=== PATIENT | male | born 1960 | race Caucasian/White ===

== ENCOUNTER 2019-08-20 15:37 | Outpatient (CLI) | payer OTHER ==
[2019-08-20] MEDS ORDERED: GADOBUTROL 10 MMOL/10 ML VIAL ONE (15:57)
[2019-08-20] MEDS ORDERED: GADOBUTROL 10 MMOL/10 ML VIAL IVP ONE (17:44)
--- NOTE | 2019-08-21 14:31 | MRI Report ---
Reason: FISTULA OF BILE DUCT Procedure Date: 08/20/2019 Accession Number: [id number] / [id number] Procedure: MRI - Abdomen W/WO CPT Code: Final Report FULL RESULT: EXAM: MR ABDOMEN WITH AND WITHOUT CONTRAST (MR PANCREAS AND MRCP) EXAM DATE: 08/20/2019 05:43 PM. CLINICAL HISTORY: FISTULA OF BILE DUCT. Intermittent abdominal pain for the past few months, usually triggered by eating. COMPARISON: None. TECHNIQUE: Multiplanar breath-hold T1, T2, and DWI sequences obtained through the pancreas and abdomen on an MR scanner. Dedicated 2D and 3D MRCP sequences obtained through the biliary and pancreatic ducts. Images obtained before and after administration of 10 cc GADAVIST intravenous contrast. Multiphase postcontrast sequences obtained through the pancreas. FINDINGS: Lung Bases: Unremarkable. Liver: The liver has normal size, morphology and signal. No evidence of mass. 1.1 cm simple cyst in segment 6. Gallbladder: There are several small nondependent gallstones measuring up to 5 mm in size. No abnormal gallbladder dilation, wall thickening, or pericholecystic edema. Bile Ducts: No intrahepatic or extrahepatic duct dilatation. The common bile duct measures up to 6 mm. No choledocholithiasis. Pancreas: The pancreas appears normal with no mass. The pancreatic duct measures 1 mm in diameter and appears normal with no stone or stricture. No peripancreatic edema. Spleen: The spleen appears normal. Kidneys: The kidneys appear normal with no mass or hydronephrosis. There are a few tiny simple cysts in both kidneys. No imaging follow-up is recommended per consensus recommendations based on imaging criteria. Adrenals: The adrenals appear normal. Bowel: The visualized segments of the small bowel and colon appear normal with no inflammation or obstruction. Peritoneum: No ascites. Retroperitoneum: The retroperitoneal structures appear normal with no mass or lymphadenopathy. Other: Body wall and bones are unremarkable. IMPRESSION: 1. Cholelithiasis. No evidence of acute cholecystitis. 2. No biliary ductal dilatation or choledocholithiasis. RADIA
== END 2019-08-20 15:38 | disposition home or self-care (01) ==
LOC: DI 15:37
PROVIDERS: ATTEND Internal Medicine Gastroenterology
DX: K80.20 Calculus of gallbladder without cholecystitis without obstruction (principal)
CPT/HCPCS: 74183; A9585

== ENCOUNTER 2019-08-29 10:55 | Outpatient (CLI) | payer OTHER ==
[2019-08-29 11:20] LABS: ALBUMIN 4.3 g/dL (3.2-5.5); ALBUMIN/GLOBULIN RATIO 1.5 (1.0-2.2); BILIRUBIN,TOTAL 1.2 mg/dL (0.2-1.0); CALCIUM 9.5 mg/dL (8.5-10.3); TOTAL PROTEIN 7.2 g/dL (6.7-8.2)
== END 2019-08-29 10:56 | disposition home or self-care (01) ==
LOC: LAB 10:55
PROVIDERS: ATTEND Surgery
DX: K83.8 Other specified diseases of biliary tract (principal)
CPT/HCPCS: 36415; 80053

== ENCOUNTER 2019-09-26 15:31 | Outpatient (CLI) | payer OTHER | END 2019-09-26 15:32 | disposition home or self-care (01) | LOC: LAB 15:31 | PROVIDERS: ATTEND Surgery | DX: K81.1 Chronic cholecystitis (principal) | CPT/HCPCS: 81599 ==

== ENCOUNTER 2020-03-13 03:29 | Emergency (ER) | payer OTHER ==
[2020-03-13] MEDS ORDERED: KETOROLAC 30 MG/ML VIAL IVP STA (03:51)
[2020-03-13] MEDS ORDERED: SODIUM CHLORIDE 0.9% 1,000 ML IV STA (03:51)
--- NOTE | 2020-03-13 03:53 | ED Physician Documentation ---
PD HPI ABD PAIN - Stated complaint Stated Complaint: ABD PX - Chief complaint Chief Complaint: Abd Pain - History obtained from History obtained from: Patient, Family - History of Present Illness Timing - onset: How many weeks ago (2) Timing - duration: Weeks (2) Timing - details: Gradual onset, Still present Quality: Sharp, Pain Location: Epigastric Worsened by: Eating Associated symptoms: Diarrhea (once). No: Fever, Vomiting, Dysuria, Chest pain, Dizzy Similar symptoms before: Diagnosis (Cholecystitis and choledocholithiasis) Recently seen: Clinic - Additional information Additional information: 59-year-old male who had his gallbladder out in September of this year after having a common duct stone in July has developed epigastric pain over the past 2 weeks that is been worse after eating and this morning the pain the suddenly much more severe and the patient has come to the emergency department for evaluation. He states this feels very similar to when he had his gallbladder attacks. Review of Systems Constitutional: denies: Fever Eyes: denies: Decreased vision Ears: denies: Ear pain Nose: denies: Congestion Throat: denies: Sore throat Cardiac: denies: Chest pain / pressure Respiratory: denies: Dyspnea, Cough GI: reports: Abdominal Pain, Nausea, Diarrhea (once). denies: Vomiting : denies: Dysuria, Frequency Musculoskeletal: denies: Neck pain, Back pain, Extremity pain Neurologic: denies: Generalized weakness, Focal weakness, Numbness PD PAST MEDICAL HISTORY - Past Medical History Past Medical History: Yes Respiratory: Sleep apnea, CPAP use Endocrine/Autoimmune: None, Other GI: GERD, Cholelithiasis : None HEENT: Other Psych: None Musculoskeletal: None, Other Derm: None Other Past Medical History: allergies - Past Surgical History Past Surgical History: Yes General: Cholecystectomy, Colonoscopy - Present Medications Home Medications: Ambulatory Orders Medication Instructions Recorded Confirmed Loratadine [Claritin] 10 mg PO DAILY 09/30/19 09/30/19 - Allergies Allergies/Adverse Reactions: Allergies Allergy/AdvReac Type Severity Reaction Status Date / Time No Known Drug Allergies Allergy Verified 03/13/20 03:36 - Social History Does the pt smoke?: No Smoking Status: Never smoker Does the pt drink ETOH?: Yes Does the pt have substance abuse?: No - Immunizations Immunizations are current?: Yes - POLST Patient has POLST: No PD ED PE NORMAL - Vitals Vital signs reviewed: Yes (hypertensive ) - General General: Alert and oriented X 3, No acute distress, Well developed/nourished - HEENT HEENT: Atraumatic, PERRL, EOMI, Other (scleral icterus is present) - Neck Neck: Supple, no meningeal sign, No bony TTP - Cardiac Cardiac: RRR, No murmur - Respiratory Respiratory: No respiratory distress, Clear bilaterally - Abdomen Abdomen: Normal bowel sounds, Soft, Non distended, No organomegaly, Other (epigastric tenderness without garding or rebound. ) - Back Back: No CVA TTP, No spinal TTP - Derm Derm: Normal color, Warm and dry, No rash - Extremities Extremities: No deformity, No edema - Neuro Neuro: Alert and oriented X 3, technical systems architect 2-12 intact, No motor deficit, No sensory deficit, Normal speech Eye Opening: Spontaneous Motor: Obeys Commands Verbal: Oriented GCS Score: 15 - Psych Psych: Normal mood, Normal affect Results - Vitals Vitals: Vital Signs - 24 hr 03/13/20 03/13/20 03/13/20 03:33 03:40 05:35 Temperature 36.8 C 36.8 C 36.8 C Heart Rate 80 80 74 Respiratory 20 20 20 Rate Blood Pressure 174/92 H 174/92 H 143/78 H O2 Saturation 99 99 99 Oxygen O2 Source Room air - Labs Labs: Laboratory Tests 03/13/20 03/13/20 03/13/20 04:16 04:16 04:47 WBC 7.9 RBC 5.16 Hgb 15.7 Hct 46.3 MCV 89.7 MCH 30.4 MCHC 33.9 RDW 13.9 Plt Count 235 MPV 9.0 Neut # (Auto) 6.7 H Lymph # (Auto) 0.6 L Coles # (Auto) 0.5 Eos # (Auto) 0.0 Baso # (Auto) 0.0 Absolute Nucleated RBC 0.00 Nucleated RBC % 0.0 Sodium 136 Potassium 3.8 Chloride 102 Carbon Dioxide 21 Anion Gap 13.0 BUN 14 Creatinine 0.7 Estimated GFR (MDRD) 116 Glucose 152 H Calcium 9.0 Total Bilirubin 8.4 H AST 261 H ALT 535 H Alkaline Phosphatase 361 H Total Protein 7.2 Albumin 4.0 Globulin 3.2 Albumin/Globulin Ratio 1.3 Lipase 3150 H Urine Color DK. ORANGE Urine Clarity CLEAR Urine pH 5.5 Ur Specific [place] 1.025 Urine Protein NEGATIVE Urine Glucose (UA) NEGATIVE Urine Ketones TRACE Urine Occult Blood NEGATIVE Urine Nitrite NEGATIVE Urine Bilirubin LARGE H Urine Urobilinogen >=8.0 H Ur Leukocyte Esterase NEGATIVE Ur Microscopic Review NOT INDICATED Urine Culture Comments NOT INDICATED PD MEDICAL DECISION MAKING - ED course Complexity details: reviewed results, re-evaluated patient, considered differential, d/w patient, d/w family ED course: 59-year-old male with a prior history of cholecystitis has had his gallbladder out he has had a presumed choledocholithiasis prior to that with elevation of his LFTs and bilirubin which then returned to normal and following that he had a normal MRCP. This evening he presents to the emergency department with 2 weeks of pain and he appears to have scleral icterus.His biochemical profile is consistent with a common duct stone and pancreatitis. His biochemical profile is shared the Dr. Cortes BRIZUELA at [facility] and he recommends imaging first to identify specifically the underlying leasion transfer for care as appropriate. MRCP is not available until 6pm today and an ultrasound is ordered and care of the patient is turned over to Dr. Jane at shift change. The patient is comfortable and not vomiting in the position. He has received a liter of saline and 30mg of Toradal. Departure - Departure Clinical Impression: Biliary obstruction Pancreatitis Qualifiers: Chronicity: acute Pancreatitis type: biliary Acute pancreatitis complication: unspecified Qualified Code(s): K85.10 - Biliary acute pancreatitis without necrosis or infection
[2020-03-13 04:26] LABS: BASOPHILS % (AUTO) 0.3 %; EOSINOPHILS % (AUTO) 0.4 %; HGB - HEMOGLOBIN 15.7 g/dL (14.0-18.0); LYMPHOCYTES # (AUTO) 0.6 10^3/uL (1.5-3.5); LYMPHOCYTES % (AUTO) 7.6 %; MEAN CORPUSCULAR HEMOGLOBIN 30.4 pg (27.0-31.0); MEAN CORPUSCULAR HGB CONC 33.9 g/dL (32.0-36.0); MEAN CORPUSCULAR VOLUME 89.7 fL (80.0-94.0); MONOCYTES # (AUTO) 0.5 10^3/uL (0.0-1.0); MONOCYTES % (AUTO) 6.1 %; NEUTROPHILS # (AUTO) 6.7 10^3/uL (1.5-6.6); NEUTROPHILS % (AUTO) 85.2 %; PLT - PLATELET COUNT 235 10^3/uL (130-450); RED BLOOD COUNT 5.16 10^6/uL (4.70-6.10); RED CELL DISTRIBUTION WIDTH 13.9 % (12.0-15.0); WHITE BLOOD COUNT 7.9 x10^3/uL (4.8-10.8)
[2020-03-13 04:41] LABS: ALBUMIN/GLOBULIN RATIO 1.3 (1.0-2.2); BILIRUBIN,TOTAL 8.4 mg/dL (0.2-1.0); CREATININE 0.7 mg/dL (0.6-1.2); TOTAL PROTEIN 7.2 g/dL (6.7-8.2)
[2020-03-13 04:52] LABS: GLUCOSE, URINE (UA) NEGATIVE (NEGATIVE); KETONES,URINE (UA) TRACE mg/dL (NEGATIVE); LEUKOCYTE ESTERASE, URINE NEGATIVE (NEGATIVE); NITRITE,URINE NEGATIVE (NEGATIVE); OCCULT BLOOD,URINE NEGATIVE (NEGATIVE); PH,URINE 5.5 PH (5.0-7.5); PROTEIN,URINE NEGATIVE (NEGATIVE); UROBILINOGEN,URINE >=8.0 E.U./dL (NORMAL)
[2020-03-13 04:53] LABS: BILIRUBIN,URINE LARGE (NEGATIVE); CLARITY,URINE CLEAR (CLEAR); ICTOTEST,URINE POSITIVE
[2020-03-13] MEDS ORDERED: LACTATED RINGERS 1,000 ML IV STA ×3 (08:47→14:26)
[2020-03-13] MEDS ORDERED: HYDROmorphone 2 MG/ML VIAL IVP STA (08:47)
--- NOTE | 2020-03-13 09:08 | Ultrasound Report ---
PROCEDURE: Abdomen Limited INDICATIONS: s/p CCY, ? ductal blockage TECHNIQUE: Real-time focused scanning was performed of the abdomen, with image documentation. COMPARISON: MRI dated 08.20.19 FINDINGS: Evaluation is limited by body habitus. Liver demonstrates a coarse echotexture, and is otherwise within normal limits. Gallbladder surgical ly absent. There is mild intrahepatic and extrahepatic biliary ductal dilatation. Common hepatic duct measures 9 mm. Common bile duct measures 10 mm. Right kidney measures 10.8 cm with a normal renal co rtical thickness of 1.8 cm. 6 mm right interpolar renal cyst. IVC is patent. IMPRESSION: 1. Mild biliary ductal dilatation, which may be within normal limits given patient's age and cholecys tectomy status. If there is clinical evidence for biliary ductal obstruction, MRCP may be helpful for further assessment. Reviewed by: Vishnu Lamb MD on 03/13/2020 9:07 AM [facility] Approved by: Vishnu Lamb MD on 03/13/2020 9:07 AM PST Station ID: [id number]
--- NOTE | 2020-03-13 09:09 | ED Physician Documentation ---
ED Addendum - Addendum Addendum: 03/13/20 09:07The patient was having still moderate pain after Toradol earlier. We will give some more IV fluids as well as pain medicine. He just completed the ultrasound and the preliminary from the tech in the worksheet shows a dilated common bile duct of 10 mm. They are unable to visualize the length of it so could not include or exclude stones. MRCP is not available until 6 PM tonight assuming no problems in the schedule through the day. At this point I think the patient will likely need admitting anyway and I will contact back the [facility] and see if they want transfer head and try to obtain further imaging there.
[2020-03-13] MEDS ORDERED: GADOBUTROL 10 MMOL/10 ML VIAL ONE (10:03)
[2020-03-13] MEDS ORDERED: GADOBUTROL 10 MMOL/10 ML VIAL IVP ONE (10:52)
--- NOTE | 2020-03-13 11:18 | MRI Report ---
PROCEDURE: MRCP W/WO INDICATIONS: pancreatitis with obstruction CONTRAST: IV CONTRAST: Gadavist ml: 10 TECHNIQUE: Coronal ultra fast SE through the abdomen, axial 2-D spoiled GE in- and [id number], and breath-hold T2 FSE with fat saturation through the biliary system and pancreas. Oblique coronal and axial thin- slice ultra fast SE, radial thick-slab ultra fast SE centered on the extrahepatic bile ducts. IV con trast enhanced axial T1 fat saturated sequences of the abdomen. COMPARISON: Ultrasound examination dated 03.13. FINDINGS: Image quality: Excellent. Pancreas and biliary system: There is moderate intrahepatic and extrahepatic biliary ductal dilatatio n. Common hepatic duct measures 11 mm diameter. Common bile duct demonstrates a maximal short axis di ameter of 13 mm. There is a 3 mm diameter hypointense focus within the distal common bile duct Pancre as is normal in morphology. There is moderate T2 signal elevation surrounding the pancreatic head, ne ck, body and tail. Pancreatic duct is normal in caliber, without developmental anomalies. Gallbladde r is surgically absent. Other solid organs: Liver and spleen are normal in size. No adrenal nodules. Both kidneys are norm al in size, without hydronephrosis. Nodes and vessels: No retroperitoneal or mesenteric adenopathy by size criteria. Aorta and inferior vena cava are normal in size. Bowel and peritoneum: Unenhanced bowel loops are normal in caliber. There is a small amount of fluid within the left anterior pararenal space and surrounding the pancreatic body and tail. Lung bases: No basal pleural effusions. Heart size is normal. Bones and soft tissues: No ventral hernias. Bone marrow is of normal overall signal. IMPRESSION: 1. Distal common bile duct calculus measuring 3 mm associated with moderate intrahepatic and extrahep atic biliary ductal dilatation. 2. Pancreatitis. Reviewed by: Vishnu Lamb MD on 03/13/2020 11:17 AM [facility] Approved by: Vishnu Lamb MD on 03/13/2020 11:17 AM [facility] Station ID: [id number]
[2020-03-13] MEDS ORDERED: AMPICILLIN/SULBACTAM 1.5 GM in SODIUM CHLORIDE 0.9% MINIBAG 100 ML IV STA (11:41)
[2020-03-13 15:43] LABS: C. PNEUMONIAE- RESP PCR PANEL NOT DETECTED
[2020-03-13 17:07] VITALS: BP 126/76
== END 2020-03-13 17:21 | disposition short-term general hospital (02) ==
LOC: ED 03:29
DX: K80.50 Calculus of bile duct without cholangitis or cholecystitis without obstruction (principal); K85.10 Biliary acute pancreatitis without necrosis or infection; R74.8 Abnormal levels of other serum enzymes; Z90.49 Acquired absence of other specified parts of digestive tract; Z20.828 Contact with and (suspected) exposure to other viral communicable diseases
CPT/HCPCS: 0202U; 36415; 74183; 76705; 80053; 81003; 83690; 85025; 96361; 96374; 96375; 99284; 99285; A9585; J1170; J7120; 81001; 87086

== ENCOUNTER 2023-12-14 09:08 | Outpatient (CLI) | payer OTHER ==
--- NOTE | 2023-12-15 11:44 | MRI Report ---
PROCEDURE: Lumbar Spine WO INDICATIONS: LOW BACK PAIN TECHNIQUE: Noncontrast sagittal T1 spin echo and T2 fast echo, sagittal STIR, axial T1 and T2 fast spin echo thr ough the lumbar spine. In cases with scoliosis, additional coronal T2 fast spin echo may be performe d. COMPARISON: None. FINDINGS: Image quality: Diagnostic, with note made of motion artifact. Alignment and Curvature: There is mild grade 1 anterolisthesis seen at L5-S1. No associated pars def ects are seen. Bone Marrow: Marrow is of normal overall signal. No acute vertebral body compression fractures. Spinal Cord: Conus medullaris terminates at the L1 level. Visualized cord demonstrates normal signa l and size. Paraspinous Soft Tissues: No paravertebral masses. This patient has transitional anatomy. For the purposes of this examination, the level with the last well-developed disc space considered to be L5-S1. By the summary scheme, there is a transitional disc at S1-S2. There are likely vestigial ribs present at L1. T12-L1: Mild loss of disc height and disc signal are seen. Mild disc bulge is seen. Mild facet hyp ertrophy is seen. Moderate bilateral neural foraminal narrowing is seen. No central canal narrowing is seen. L1-L2: No significant abnormality is seen. L2-L3: The disc height is well-preserved. There is loss of disc signal seen. Mild to moderate disc bulge is seen, with a mild central disc protrusion. Mild to moderate facet hypertrophy is seen. Asso ciated hypertrophy of the ligamentum flavum can be seen. There is moderate bilateral neuroforaminal n arrowing seen, left worse than right. Moderate central canal narrowing is seen. L3-L4: The disc height is well-preserved. There is loss of disc signal seen. Moderate disc bulge i s seen at this level. A superimposed central disc protrusion is seen. Moderate facet hypertrophy is seen. There is at least moderate bilateral neuroforaminal narrowing seen. Moderate to severe centr al canal narrowing is seen, as on series 6 image 28. L4-L5: The disc height is well-preserved. There is loss of disc signal seen. Moderate disc bulge i s seen at this level. A superimposed central disc protrusion is seen. Moderate facet hypertrophy i s seen. Associated hypertrophy of the ligamentum flavum can be seen. There is at least moderate bilat eral neuroforaminal narrowing seen. At least moderate central canal narrowing is seen. L5-S1: Mild loss of disc height and disc signal are seen. Moderate disc bulge is seen at this leve l. A superimposed central disc protrusion is seen. Prominent facet hypertrophy can be seen. There is at least moderate bilateral neuroforaminal narrowing seen, right worse than left. There is a mild deg ree of compression seen upon the exiting right L5 nerve root. Moderate to severe central canal narrow ing is seen, as on series 6 image 40. IMPRESSION: Multiple levels of lumbar spine degenerative change can be seen, which are worst at the L5-S1 level. Reviewed by: Scott Moore MD on 12/15/2023 10:42 AM [facility] Approved by: Scott Moore MD on 12/15/2023 10:42 AM [facility] Station ID: [id number]
--- NOTE | 2023-12-17 13:33 | MRI Report ---
PROCEDURE: Knee RT WO INDICATIONS: R KNEE PAIN, LOW BACK PAIN TECHNIQUE: Noncontrast sagittal PD fast spin echo and T2 fast spin echo with fat saturation, sagittal 3-D spoile d GE with fat saturation; coronal T1 spin echo and PD fast spin echo with fat saturation, and axial P D fast spin echo with fat saturation through the knee. COMPARISON: None. FINDINGS: Image quality: Excellent. Anterior cruciate ligament: Intact. Posterior cruciate ligament: Intact. Medial collateral ligament: Intact. Lateral collateral ligament: Intact. Medial meniscus: Mild intrasubstance degeneration is seen without a discrete tear. Lateral meniscus: Mild intrasubstance degeneration. No discrete ligament tearing. Medial and lateral tendons: The semimembranosus tendon insertions appear intact. Visualized portion s of the pes anserinus tendons appear normal. The popliteus tendon appears intact. Iliotibial band appears normal. Anterior structures: Mild patellar tendinosis. The distal quadriceps tendon is intact. No patellar s ubluxation. No femoral trochlear dysplasia or ventral trochlear prominence. No edema in the infrapa tellar fat pad. Bones: No acute trabecular bone injury or fracture. Medial femorotibial cartilage: High-grade partial thickness cartilage irregularity in the weightbear ing portion of the medial femorotibial compartment with small marginal osteophytes. Lateral femorotibial cartilage: Focal high-grade cartilage loss at the posterior portion of the late ral femoral condyle superimposed on background mild chondromalacia with small marginal osteophytes. Patellofemoral cartilage: Large area of full-thickness cartilage loss involving the lateral patellar facet and lateral femoral trochlea with subchondral cystic changes and edema as well as remodeling o f the articular surfaces. Small marginal osteophytes are present. Soft tissues: There is a small joint effusion. There is a trace medial popliteal cyst. The musculat ure surrounding the knee is normal in bulk. Nonspecific prepatellar subcutaneous soft tissue edema. N o focal bursal fluid collection. IMPRESSION: 1.Tricompartmental osteoarthrosis with large area of full-thickness cartilage loss in the patellofemo ral compartment with subchondral cystic changes and remodeling of the articular surfaces. Areas of gr xi III chondromalacia are seen in the medial and lateral femorotibial compartments. 2.Mild intrasubstance degeneration in the medial and lateral menisci without a discrete tear. 3.Mild patellar tendinosis. 4.No acute trabecular bone injury. Cruciate and collateral ligaments are intact. 5.Small joint effusion. Nonspecific prepatellar subcutaneous soft tissue edema. Reviewed by: Brian Curry MD on 12/17/2023 1:31 PM PDT Approved by: Brian Curry MD on 12/17/2023 1:31 PM PDT Station ID: [id number]
== END 2023-12-14 09:09 | disposition home or self-care (01) ==
LOC: DI 09:08
PROVIDERS: ATTEND Nurse Practitioner Family
DX: M51.36 Other intervertebral disc degeneration, lumbar region (principal); M51.37 Other intervertebral disc degeneration, lumbosacral region; M51.26 Other intervertebral disc displacement, lumbar region; M17.11 Unilateral primary osteoarthritis, right knee; M94.261 Chondromalacia, right knee; M76.51 Patellar tendinitis, right knee; M25.461 Effusion, right knee